=== PATIENT | female | born 1945 | race African-American/Black ===

== ENCOUNTER 2022-12-15 11:43 | Emergency (ER) | payer BC, MEDICARE ==
[~2022-12-15] VITALS: Ht 157.5 cm; Wt 93.0 kg
[2022-12-15 12:02] VITALS: BP 122/65; O2SAT 99
[2022-12-15] MEDS ORDERED: ACETAMINOPHEN 325MG TABLET PO ONE (12:30)
[2022-12-15] MEDS ORDERED: ACET-2708 MT (13:18)
[2022-12-15 13:48] VITALS: PULSE 110; RESP 17; TEMP 98.9
== END 2022-12-15 13:49 | disposition home or self-care (01) ==
LOC: ER 11:43
DX: S80.01XA Contusion of right knee, initial encounter (principal); S90.02XA Contusion of left ankle, initial encounter; E11.9 Type 2 diabetes mellitus without complications; I10 Essential (primary) hypertension; W18.39XA Other fall on same level, initial encounter; Y93.89 Activity, other specified; Y92.89 Other specified places as the place of occurrence of the external cause; Y99.8 Other external cause status
CPT/HCPCS: 73562; 73610; 73630; 99284